=== PATIENT | female | born 1960 | race Caucasian/White ===

== ENCOUNTER 2017-12-15 19:53 | Emergency (ER) | payer BC ==
[~2017-12-15] VITALS: Ht 170.2 cm; Wt 78.9 kg
[~2017-12-15 19:53] MED LIST: FLEXERIL PO; PROZAC 20 MG20 MG PO
[2017-12-15] MEDS ORDERED: NORCO 5-325 TA1 EACH PO (20:46)
[2017-12-15 21:43] VITALS: BP 148/80
== END 2017-12-15 21:34 | disposition home or self-care (01) ==
LOC: M.ERS 19:53
DX: S92.212A Displaced fracture of cuboid bone of left foot, initial encounter for closed fracture (principal); F41.9 Anxiety disorder, unspecified; W13.8XXA Fall from, out of or through other building or structure, initial encounter; Y93.89 Activity, other specified; Y92.89 Other specified places as the place of occurrence of the external cause; Y99.8 Other external cause status